=== PATIENT | male | born 2000 | race Caucasian/White ===

== ENCOUNTER 2018-02-11 09:15 | Outpatient (CLI) | payer BC ==
--- NOTE | 2018-02-11 10:36 | RAD ---
LEFT RIBS 3 VIEWS: DATE: 02/11/18. FINDINGS: No fracture or significant bony deformity was appreciated. Ribs overall were unremarkable in appeara nce. The adjacent left lung is clear. IMPRESSION: No significant findings. POS: HOME
--- NOTE | 2018-02-11 10:37 | RAD ---
RIGHT RIBS TWO VIEWS: Date: 02-11-18 FINDINGS: Two views of the right ribs show no fracture or gross bone deformity. There were no bony changes are concern. The adjacent lung is clear. IMPRESSION: No significant findings. POS: HOME
== END 2018-02-11 09:16 | disposition home or self-care (01) ==
LOC: BURRAD 09:15
PROVIDERS: ATTEND Family Medicine
DX: R07.81 Pleurodynia (principal)

== ENCOUNTER 2021-07-01 17:57 | Emergency (ER) | payer BC ==
[2021-07-02 22:16] LABS: SARS-CoV-2 PCR by NAA DETECTED (NotDetected)
== END 2021-07-01 21:28 | disposition home or self-care (01) ==
LOC: BURERS 17:57
DX: U07.1 COVID-19 (principal)
CPT/HCPCS: 99283; U0003; U0005

== ENCOUNTER 2023-01-23 11:06 | Emergency (ER) | payer BC ==
[2023-01-23 11:53] LABS: #Basophils 0.1 thou/uL (0.0-0.2); #Eosinphils 0.1 thou/uL (0.0-0.7); #Lymphocytes 1.8 thou/uL (1.20-3.40); #Monocytes 0.4 thou/uL (0.11-0.59); #Neutrophils 2.1 thou/uL (1.40-6.50); %Basophils 1.6 % (0.0-1.0); %Eosinophils 2.4 % (0.0-10.0); %Lymphocytes 40.4 % (21.0-51.0); %Monocytes 9.7 % (0.0-10.0); %Neutrophils 45.9 % (42.0-75.0); Hematocrit 46.5 % (42.0-52.0); Hemoglobin 14.5 g/dL (14.0-18.0); Mean Corpuscular HGB CONC 31.2 g/dL (32.0-36.0); Mean Corpuscular Hemoglobin 26.1 pg (27.0-31.0); Mean Corpuscular Volume 83.6 fl (78.0-98.0); Mean Platelet Volume 8.1 fL (7.4-10.4); Platelet Count 186 10x3/uL (130-400); RBC Distribution Width 11.9 % (11.5-14.5); Red Blood Cell (RBC) Count 5.56 mill/uL (4.70-6.10); White Blood Cell (WBC) Count 4.5 10x3/uL (4.8-10.8)
[2023-01-23 11:58] LABS: Bilirubin Negative (Negative); Blood, Urine Negative (Negative); Clarity Clear (Clear); Glucose, Urine (Dipstick) Negative (Negative); Ketone, Urine Negative (Negative); Leukocyte Negative (Negative); Nitrite Negative (Negative); Protein, Urine (Dipstick) Negative (Neg-Trace); Specific Gravity, Urine 1.015 (1.005-1.030); Urobilinogen 0.2 mg/dL (Less than 2); pH, Urine 7.5 (5.0-9.0)
[2023-01-23 12:15] LABS: ALT (SGPT) 23 U/L (8-55); AST (SGOT) 20 U/L (5-34); Albumin 4.6 g/dL (3.5-5.0); Alkaline Phosphatase 57 U/L (40-110); Anion Gap 15 mmol/L (10-20); BUN (Urea Nitrogen) 15 mg/dL (8.9-20.6); Bilirubin, Total 0.9 mg/dL (0.2-1.2); CK (CPK) 260 U/L (30-200); Calc. Creatinine Clearance 0 mL/min (70-130); Calcium 9.6 mg/dL (7.8-10.44); Carbon Dioxide 24 mmol/L (22-29); Chloride 106 mmol/L (98-107); Estimated GFR 119; Globulin 2.5 g/dL (2.4-3.5); Glucose 97 mg/dL (70-105); Potassium 4.3 mmol/L (3.5-5.1); Protein, Total 7.1 g/dL (6.0-8.3); Sodium 141 mmol/L (136-145)
== END 2023-01-23 13:23 | disposition home or self-care (01) ==
LOC: BURERS 11:06
DX: E86.0 Dehydration (principal)
CPT/HCPCS: 36415; 80053; 81003; 82550; 85025; 96360